=== PATIENT | female | born 1945 | race African-American/Black ===

== ENCOUNTER 2017-11-13 13:45 | Outpatient (RCR) | payer OTHER | END 2017-11-15 | disposition home or self-care (01) | LOC: PTY 13:45 | DX: M54.5 Low back pain (principal) ==

== ENCOUNTER 2017-12-11 10:20 | Outpatient (RCR) | payer OTHER | END 2017-12-13 | disposition home or self-care (01) | LOC: PTY 10:20 | DX: M54.5 Low back pain (principal); M25.662 Stiffness of left knee, not elsewhere classified; G89.29 Other chronic pain ==

== ENCOUNTER 2018-01-19 09:00 | Outpatient (RCR) | payer OTHER | END 2018-02-12 | disposition home or self-care (01) | LOC: PTY 09:00 | DX: M54.5 Low back pain (principal) ==